=== PATIENT | female | born 1975 | race Hispanic/Latino ===

== ENCOUNTER 2017-05-20 06:46 | Day surgery (SDC) | payer BC ==
[2017-05-20] MEDS ORDERED: Oxytocin 10 Units/ml Inj ONE (10:47)
[2017-05-20] MEDS ORDERED: Doxycycline 100 mg Inj ONE (10:47)
[2017-05-20] MEDS ORDERED: Phenylephrine 10 mg/ml Inj ONE (10:55)
[2017-05-20] MEDS ORDERED: Lactated Ringer's 1,000 ML IV ONE (10:55)
[2017-05-20] MEDS ORDERED: Midazolam 2 MG/2 ML VIAL ONE (10:55)
[2017-05-20] MEDS ORDERED: Propofol 10 mg/ml Inj (20 ML) ONE (10:55)
[2017-05-20] MEDS ORDERED: Succinylcholine Chloride 20 mg/ml Syr (5 ml) IV ONE (10:55)
--- NOTE | 2017-05-20 12:03 | PCM.SURG1 ---
Surgeon's Initial Post Op Note - Surgeon's Notes Surgeon: Kateryna Sultana MD Duty Engineer: none Type of Anesthesia: General LMA Pre-Operative Diagnosis: Missed 8 weeks Operative Findings: anteverted utures 8-10 weeks, 7mm curved suction currette used, moderate amoutn of products of conception removed, good hemostasis Post-Operative Diagnosis: same as above Operation Performed: Suction Dilation and Currettage Specimen/Specimens Removed: products of conception Estimated Blood Loss: EBL {In ML}: 10 Blood Products Given: N/A Drains Used: No Drains Post-Op Condition: Good Date of Surgery/Procedure: 05/20/17 Time of Surgery/Procedure: 11:00
[2017-05-20 13:00] VITALS: RESP 16
[2017-05-20 13:34] VITALS: BP 106/92; PULSE 81; TEMP 97.4; O2SAT 98
--- NOTE | 2017-05-20 22:14 | OP ---
PROCEDURE DATE: 05/20/2017 SURGEON: Kateryna Sultana MD. FULL STACK ENGINEER: None. TYPE OF ANESTHESIA: General LMA. PREOPERATIVE DIAGNOSES: Missed 8 weeks; anteverted uterus, 8 to 7 weeks; 7-mm curved suction curette used; moderate amounts of products of conception, removed; good hemostasis. POSTOPERATIVE DIAGNOSES: Missed 8 weeks; anteverted uterus, 8 to 7 weeks; 7-mm curved suction curette used; moderate amounts of products of conception, removed; good hemostasis. OPERATION PERFORMED: Suction dilation and curettage. SPECIMENS REMOVED: Products of conception. ESTIMATED BLOOD LOSS: 10 mL. BLOOD PRODUCTS: None. COMPLICATIONS: None. DESCRIPTION OF PROCEDURE: The patient was taken to the operating room where she was given general anesthesia. Once found to be adequate, she was placed on the operating table in dorsal lithotomy position with legs supported using stirrups. The patient was then prepped and draped in the usual sterile fashion. Timeout confirmed correct patient and correct procedure. The patient was given preoperative prophylactic antibiotics. A red rubber catheter was inserted into the urethra to drain the bladder and 30 mL of clear yellow urine were obtained. Forrester retractor was placed in the anterior and posterior fornix of the vagina and the single tooth tenaculum was placed on the anterior lip of the cervix. The cervix was sequentially dilated with a Moises dilator to allow further introduction of the 7-mm curved suction curette which was advanced to the fundus and rotated 360 degrees until all products were removed. Following this, a gentle curettage was done 360 degrees until a gritty texture was noted. The suction curette was then advanced once an additional final time until air bubbles were noted within the suction curette. All instruments were removed. There was good hemostasis noted. At the end of the procedure, all needle, sponge, and instrument counts were noted and correct x2. The patient tolerated the procedure well and was transferred to the recovery room in stable condition. Kateryna Sultana MD
== END 2017-05-20 13:19 | disposition home or self-care (01) ==
LOC: C.SDS 06:46
PROVIDERS: ATTEND Obstetrics & Gynecology
DX: O02.1 Missed abortion (principal)
CPT/HCPCS: 36415; 59820; 86850; 86900; 88305; J2250; J2370; J2405; J2590; J2704; J3010; J7120

== ENCOUNTER 2017-09-02 07:01 | Day surgery (SDC) | payer BC ==
[2017-09-02] MEDS ORDERED: HYDROmorphone 0.5 mg/0.5 ml ISec IVP PRN (08:54)
[2017-09-02] MEDS ORDERED: Propofol 10 mg/ml Inj (20 ML) ONE (10:15)
[2017-09-02] MEDS ORDERED: Midazolam 2 MG/2 ML VIAL ONE (10:15)
[2017-09-02] MEDS ORDERED: Silver Nitrate Topical - Stick ONE (10:55)
[2017-09-02] MEDS: HYDROmorphone 0.5 mg/0.5 ml ISec IVP PRN ×2 (11:25→11:40)
--- NOTE | 2017-09-02 11:35 | PCM.SURG1 ---
Surgeon's Initial Post Op Note - Surgeon's Notes Surgeon: Kateryna callahan MD Tip Mender: none Type of Anesthesia: General LMA Pre-Operative Diagnosis: Abnormal uterine bleeding Operative Findings: 8-10 weeks zie anterverted utuers, biltaerally ostia visulaized, no adnexla masses, endometiral ablation via noravua 4cm cavity lenght 4.3 width ablatin time 105 secons, hysersocope reintroude with ablaitn throughout entire cavity. novasure represenative prsent for nteire case Post-Operative Diagnosis: same as above Operation Performed: Operative hystersosopcy, dilation and currettage, Endoemtrial ablation Specimen/Specimens Removed: endocervical currettings, endometrial currettings Estimated Blood Loss: EBL {In ML}: 5 Blood Products Given: N/A Drains Used: No Drains Post-Op Condition: Good Date of Surgery/Procedure: 09/02/17 Time of Surgery/Procedure: 10:00
[2017-09-02 12:26] VITALS: RESP 18; TEMP 97.8
[2017-09-02 13:20] VITALS: BP 102/69; PULSE 59; O2SAT 100
--- NOTE | 2017-09-03 00:42 | OP ---
PROCEDURE DATE: 09/02/2017 PREOPERATIVE DIAGNOSIS: Abnormal uterine bleeding. POSTOPERATIVE DIAGNOSIS: Abnormal uterine bleeding. OPERATIVE FINDINGS: Eight- to ten-week size anteverted uterus with bilateral ostia visualized, no adnexal masses. Endometrial ablation via NovaSure, 4 cm cavity length, 4.3 cm width. Ablation time, 105 seconds. Hysteroscope introduced with ablation of the entire cavity via NovaSure. Dr. Ivan Hughes, surgical dressing maker, was present for the entire case. PROCEDURE: Operative hysteroscopy, dilation and curettage, endometrial ablation. SURGEON: Kateryna Sultana MD [employer]ET[employer] SPECIALIST: None. TYPE OF ANESTHESIA: General LMA SPECIMEN REMOVED: Endocervical curetting, endometrial curetting. ESTIMATED BLOOD LOSS: 5 mL BLOOD PRODUCTS: None. COMPLICATIONS: None. DESCRIPTION OF PROCEDURE: The patient was taken to the operating room where she was given general anesthesia. Once it was found to be adequate, she was positioned on the operating table in a dorsal supine position with the legs supported using stirrups. The patient was then prepped and draped in the usual sterile fashion. A time-out was performed confirming correct patient and correct procedure. Bimanual examination was performed with the above-mentioned findings. A red rubber catheter was then inserted into the urethra to drain the bladder. Following this, a Forrester retractor was placed on the anterior fornix of the vagina. The cervix was adequately visualized and a single-tooth tenaculum was placed in the anterior lip of the cervix. Endocervical curettings were obtained with a Kevorkian curette and sent to Pathology on [facility]. The uterus was then sounded to 8 cm. Following this, the cervix was sequentially dilated to allow for introduction of a 5-mm hysteroscope under direct visualization using normal saline as the distention media. Bilateral ostia visualized. The hysteroscope then demonstrated thick and white proliferative type endometrium noted. Hysteroscope was then removed, and a gentle curettage was done up to 360 degrees until gritty texture was noted. Specimen was sent to Pathology. Following this, the NovaSure device was then inserted as per manufacture's instructions. With the NovaSure device not deployed and within the catheter, the instrument was then inserted and the appropriate length and width was then measured and inserted on to the NovaSure device. The cervical collar was applied and the machine was then activated. The cavity suction was then passed and then activated and a total ablation time of 105 seconds following this. The NovaSure device was then removed as per the manufacture's instruction. The hysteroscope was then reintroduced and there was good ablation of the entire cavity. All instruments were removed. There was good hemostasis noted at the tenaculum puncture site. At the end of the procedure, all needle, sponge and instrument counts were noted and correct x2. The patient tolerated the procedure well and was transferred to the recovery room in stable condition. Kateryna Sultana MD
== END 2017-09-02 13:45 | disposition home or self-care (01) ==
LOC: C.SDS 07:01
PROVIDERS: ATTEND Obstetrics & Gynecology
DX: N71.9 Inflammatory disease of uterus, unspecified (principal); N93.9 Abnormal uterine and vaginal bleeding, unspecified
CPT/HCPCS: 58563; 88305; J1170; J2250; J2704; J3010